=== PATIENT | female | born 1985 | race Two or more races ===

== ENCOUNTER 2020-05-08 15:34 | Outpatient (CLI) | payer OTHER | END 2020-05-08 15:42 | disposition home or self-care (01) | LOC: RAD 15:34 | PROVIDERS: ATTEND Orthopaedic Surgery | DX: M25.572 Pain in left ankle and joints of left foot (principal) ==

== ENCOUNTER 2020-05-11 08:39 | Outpatient (CLI) | payer OTHER | END 2020-05-11 08:45 | disposition home or self-care (01) | LOC: RAD 08:39 | PROVIDERS: ATTEND Orthopaedic Surgery | DX: S93.492A Sprain of other ligament of left ankle, initial encounter (principal) ==